=== PATIENT | female | born 1945 | race Caucasian/White ===

== ENCOUNTER 2016-11-18 12:19 | Observation (INO) | payer MEDICARE, OTHER ==
[2016-11-18] MEDS ORDERED: ASPIRIN 81 MG TAB.CHEW PO ONE (13:57)
[2016-11-18 14:08] LABS: Hematocrit 35.8 % (37.0-47.0); Hemoglobin 11.7 gm/dL (12.5-16.0); Mean Cell Volume 84.4 fl (78-100); Mean Corpuscular Hemoglobin 27.6 pg (27-31); Mean Corpuscular Hgb Conc 32.7 g/dl (32-36); Neutrophil # 5.2 K/mm3 (1.3-6.0); Neutrophil % 61.9 % (42-75.0); Red Blood Count 4.24 M/mm3 (4.2-5.4); Red Cell Distribution Width 13.2 % (11.5-14.0); White Blood Count 8.3 K/mm3 (4.0-10.5)
[2016-11-18 14:23] LABS: Prothrombin Time (Patient) 10.4 Seconds (9.4-11.4)
[2016-11-18 14:24] LABS: Partial Thrombolplastin Time 25.5 Seconds (24-32)
[2016-11-18 14:29] LABS: Platelet Count 46 K/mm3 (150-450)
[2016-11-18 14:30] LABS: ALT 25 U/L (19-67); AST 15 U/L (0-48); Albumin * 4.1 gm/dl (3.4-5.0); Alkaline Phosphatase * 82 U/L (50-170); Anion Gap 14.9 mmol/L (6.8-13.8); BUN/Creatinine Ratio 19.2 (9.0-21.6); Bilirubin, Total 0.4 mg/dL (0.0-1.1); Blood Urea Nitrogen 28 mg/dL (3-23); Ca. Corrected For Albumin 8.6 mg/dL (8.4-10.2); Carbon Dioxide 24.9 mmol/L (24-32.6); Chloride 101 mmol/L (97-106); Glucose * 190 mg/dL (70-110); Potassium 3.8 mmol/L (3.4-4.6); Sodium 137 mmol/L (132-142); Total Protein 7.4 gm/dL (6.2-8.2); Troponin I Less than 0.017 ng/ml (0.00-0.10)
--- NOTE | 2016-11-18 15:12 | ERNOTE ---
Chest Pain/Cardiac HPI Date of Service: 11/18/16 Chief Complaint: Palpitations Time Seen by Provider: 11/18/16 13:44 Source: patient Exam Limitations: no limitations Immunizations: IMMUNIZATION HX Immunizations Up to Date Yes History of Influenza Vaccine No Hx Pneumococcal Vaccination No Allergies/Adverse Reactions: Allergies codeine [Codeine] Adverse Reaction (Intermediate, Verified 11/18/16 12:39) rash sulfamethoxazole [From Bactrim] Adverse Reaction (Intermediate, Verified 12:39) rash trimethoprim [From Bactrim] Adverse Reaction (Intermediate, Verified 11/18/16 12 :39) rash Home Medications: HOME MEDICATIONS Metoprolol Tartrate 1 tab PO HS 10/27/12 [Last Taken 11/18/16] Simvastatin 1 tab PO HS 10/27/12 [Last Taken 11/18/16] Sertraline HCl [Zoloft] 50 mg PO DAILY 07/04/14 [Last Taken 11/18/16] ALPRAZolam [Xanax] 0.5 mg PO HS 11/18/16 [Last Taken 11/18/16] Amlodipine Besylate [Norvasc] 2.5 mg PO DAILY 11/18/16 [Last Taken 11/18/16] Levothyroxine Sodium [Synthroid] 75 mcg PO DAILY 11/18/16 [Last Taken 11/18/16] Losartan Potassium [Cozaar] 25 mg PO DAILY 11/18/16 [Last Taken 11/18/16] Narrative: Patient comes due to fast heart rate and dizziness. Patient is getting SOB on walking. Patient with no chest pain reported. Timing: intermittent Severity/Quality: mild, dull, pressure Location: substernal Chest Pain Radiation: no radiation Activities at Onset: activity Modifying Factors - Improves: Present: nothing Modifying Factors - Worsens: Present: other - walking Aspirin Treatment Today: no aspirin today Associated Symptoms: Present: dizziness, palpitations. Absent: headache, syncope, cough, shortness of breath, diaphoresis, fever/chills, heartburn, nausea, vomiting, abdominal pain, weakness, back pain, swelling/lump in chest Prior Chest Pain/Cardiac Workup: Denies: prior chest pain Prior Treatment: Denies: recently seen Review of Systems - Review of Systems Constitutional: Present: no symptoms reported EYE: Present: no symptoms reported ENT: Present: no symptoms reported Respiratory: Present: no symptoms reported Cardiology: Present: palpitations. Absent: syncope, edema, claudication Gastrointestinal/Abdominal: Present: no symptoms reported Genitourinary: Present: no symptoms reported Musculoskeletal: Present: no symptoms reported Skin: Present: no symptoms reported Neurological: Present: no symptoms reported Endocrine: Present: no symptoms reported Hematologic/Lymphatic: Present: no symptoms reported Psych: Present: no symptoms reported - Patient's Past Medical History Patient History - Medical: Anxiety, Hypothyroidism Patient History - Cancer: No Hx of Cancer Patient History - Surgical Procedures: Cholecystectomy, Cardiac stent, Hysterectomy - Social History Living Situations: home Smoking Status: Never smoker Have you smoked in the past 12 months: No Alcohol Use: none Drug Use: none Physical Exam - Physical Exam General Appearance: Present: wd/wn, alert, no apparent distress Eye Exam: Normal inspection: bilateral, PERRL: bilateral, EOMI: bilateral Ears, Nose, Throat: Present: normal ENT inspection, hearing grossly normal Neck: Present: normal inspection, nontender Respiratory: Present: no respiratory distress, normal breath sounds, no accessory muscle use, chest nontender, lungs clear Cardiovascular/Chest: Present: normal peripheral pulses, irregularly irregular, systolic murmur Peripheral Pulses: N=norm/S=strong/W=weak/B=bound/A=absent: Carotid (R): Normal , Carotid (L): Normal, Radial (R): Normal, Radial (L): Normal, Dorsalis-pedis (R ): Normal, Dorsalis-pedis (L): Normal Gastrointestinal/Abdominal: Present: normal bowel sounds, nontender, nondistended, soft, no organomegaly Back Exam: Absent: CVA tenderness (R), CVA tenderness (L) Extremity Exam: Present: normal inspection, non-tender, no edema, normal range of motion Neurological Exam: Present: alert, oriented, normal mood/affect, no motor/ sensory deficits DTR: N=norm/NB=norm/brisk/A=abs/DD=dull/dimin/HC=hyperactive: Bicep (R): Normal , Bicep (L): Normal, Knee (R): Normal, Knee (L): Normal Skin Exam: Present: normal color, warm/dry Lymphatic Exam: Present: no adenopathy ED Progress - Date and Time Seen: Date and Time: 11/18/16 15:08 On arrival patient was noticed with A. Fib with FVR. Patient then was noticed with an irregular rhythm and on monitor A. Fib was noticed. Patient then developed a S. Rhythm. Patient case was presented to Dr. Sawyer and recommendation for Observation was given. - Results and Orders Patient's Lab Results:: I have reviewed the patient's lab results. - Vital Signs Patient's Vital Signs:: I have reviewed the patient's vital signs. Vital Signs: Vital Signs 11/18/16 11/18/16 11/18/16 12:31 13:42 14:03 Temperature 36.3 C L Pulse Rate 92 65 61 Respiratory 18 12 16 Rate Blood Pressure 155/71 149/56 148/54 O2 Sat by Pulse 98 95 94 Oximetry 11/18/16 14:17 Temperature Pulse Rate 62 Respiratory 14 Rate Blood Pressure 141/52 O2 Sat by Pulse 98 Oximetry - EKG EKG: NSR, no ST T wave changes EKG read: Interp. by me EKG Comments: Patient on EKG was found with S. Rhythm - X-Ray X-Ray #1 X-Ray: chest X-ray Comments: No acute process was reported by Radiologist on report - Progress/Reassessment Chief Complaint: Palpitations Progress:: Improved - Transfer of Care Expected Disposition: Admit Plan - Plan Plan: Due to no previous Hx of A. Fib and finding patient will be place in hospital for observation. Departure - Departure Clinical Impression: Palpitation Chest pain Qualifiers: Chest pain type: unspecified Qualified Code(s): R07.9 - Chest pain, unspecified Disposition: [facility] Condition: Good Referrals: Jessica Sawyer MD [Primary Care Provider] -
[2016-11-18] MEDS ORDERED: ASPIRIN 325 MG TABLET.DR ONE (15:23)
[2016-11-18] MEDS ORDERED: ASPIRIN 81 MG TAB.CHEW ONE (15:27)
[2016-11-18] MEDS ORDERED: NORMAL SALINE 1,000 ML IV STA (18:00)
[2016-11-18] MEDS ORDERED: POTASSIUM CHLORIDE 20 MEQ TABLET.SA PO ONE (18:01)
--- NOTE | 2016-11-18 18:34 | HP ---
Chief Complaint - Chief Complaint Date of Service: 11/18/16 Time of Service: 18:30 Chief Complaint: "feels funny in chest" for the last 10 days and intermittent dizziness for the. last 2 days. History of Present Illness: Patient is a 71 yr old WF with a H/O HTN, HLD, IFG, HODA on CPAP and hypothyroidism who came to the ER for evaluation of being more aware of her heartbeat for the last 7-10 days and intermittent dizziness for the last 2-3 days [employer]RI[employer] TRA[employer], with worsening of her symptoms today which prompted her to come to the ER. She had new onset A. fib with RVR with a rate of 136/min and converted to NSR on her own. She was admitted into observation for further care and treatment on 11/18/2016. - Patient's Past Medical History Additional info: PAST MEDICAL HISTORY: Hypertension 1984; hyperlipidemia 2005; hypothyroidism 2013; IFG 2014; obesity with BMI 39 2015; osteopenia; sleep apnea with CPAP 2014. Heart catheterizations 2 negative[dates unknown]. Patient History - Cancer: No Hx of Cancer Additional Info: PAST SURGICAL HISTORY: Hysterectomy 1971; cardiac catheterizations 2 [mild CAD] [dates unknown]; cholecystectomy 2004. - Family History Mother Family History - Medical: - 72 colon cancer, HTN Father Family History - Medical: Other - depression Children Family History - Medical: - son- at 36-MD. - Social History Living Situations: home - with spouse Smoking Status: Former smoker - 1 PPD 42 years ; quit in 2011. Have you smoked in the past 12 months: No Smoking Stop Date: 11/02/10 Alcohol Use: none Drug Use: none Review Of Systems (GEN) - Review of Systems Generalized/Overall Review: Present: Fatigue. Absent: Diaphoresis Respiratory: Present: Shortness of Breath Cardiac: Absent: Chest Pain, Edema Abdominal: Absent: Nausea, Vomiting Neurological: Present: Anxiety Allergies/Adverse Reactions: Allergies Allergy/AdvReac Type Severity Reaction Status Date / Time codeine [Codeine] AdvReac Intermediate rash Verified 11/18/16 12:39 sulfamethoxazole AdvReac Intermediate rash Verified 11/18/16 12:39 [From Bactrim] trimethoprim [From Bactrim] AdvReac Intermediate rash Verified 11/18/16 12:39 Home Medications: HOME MEDICATIONS Metoprolol Tartrate 150 mg PO HS 10/27/12 [Last Taken 10/26/12 20:00] Sertraline HCl [Zoloft] 50 mg PO DAILY 07/04/14 [Last Taken 11/18/16] ALPRAZolam [Xanax] 0.5 mg PO HS 11/18/16 [Last Taken 11/18/16] Amlodipine Besylate [Norvasc] 5 mg PO BID 11/18/16 [Last Taken 11/18/16] Levothyroxine Sodium [Synthroid] 75 mcg PO DAILY 11/18/16 [Last Taken 11/18/16] Losartan Potassium [Cozaar] 100 mg PO DAILY 11/18/16 [Last Taken 11/18/16] Pravastatin Sodium [Pravachol] 20 mg PO HS 11/18/16 [Last Taken Unknown] Exam - Exam Vital Signs: Vital Signs - Last Taken Temp 36.5 C 11/18/16 15:12 Pulse 57 L 11/18/16 16:17 Resp 18 11/18/16 15:18 BP 138/54 11/18/16 15:18 Pulse Ox 98 11/18/16 15:18 Constitutional: Present: No distress, Elderly, Obese ENT Exam: Present: hearing grossly normal, dry mucous membranes Eye Exam: bilateral eye: PERRL, EOMI Neck: Present: normal inspection, trachea midline Respiratory: Present: lungs clear, normal breath sounds. Absent: no accessory muscle use Cardiovascular/Chest: Present: regular rate, rhythm. Absent: tachycardia Peripheral Pulses: carotid (R): 2+, carotid (L): 2+ Abdomen: Present: Normal bowel sounds, soft, nontender, nondistended, CVA tenderness /Rectal: Present: Exam deferred - : Extremity: Present: normal inspection, no pedal edema Skin Exam: Present: normal color, warm/dry Neurologic: Present: no motor/sensory deficits, alert, oriented x 3 Eye contact: Present: cooperative, good eye contact, normal speech - Anxious, normal affect, normal thought pattern. Diagnostic Studies: Laboratory Tests 11/18/16 14:00 WBC 8.3 Hgb 11.7 L Hct 35.8 L Plt Count 46 L 11/18/16 14:00 Plasma Sodium 138 Potassium 3.8 Chloride 101 Carbon Dioxide 24.9 BUN 28 H Creatinine 1.46 H Est GFR (Non-Af Amer) 37 L Calcium Adj for Albumin 8.6 Total Bilirubin 0.4 AST 15 ALT 25 Alkaline Phosphatase 82 Total Protein 7.4 Albumin 4.1 11/18/16 14:00 PT 10.4 INR (Anticoag Therapy) 1.00 PTT (Carlos) 25.5 Troponin I < 0.017 11/18/16 14:00 Iron 57 TIBC 313 Transferrin % Sat 18 CXR: 11/18/2015: Cardiac silhouette, lungs and osseous structures are normal. Impression: No acute cardiopulmonary processes identified. EK11/18/2015: NSR 60/min. Assessment/Plan - Narrative Narrative: New-onset A. fib converting to NSR: Patient was admitted observation. Check thyroid levels. Patient on metoprolol ER 100 mg at bedtime. Increase accordingly. Her chads 2 score greater than 2 therefore will need anticoagulation. Discussed in detail regarding warfarin and DOAC. Patient would like to check with her insurance. Expected stay is one midnight. Check labs on 11/19/2016. Hypertension: Well controlled. On metoprolol ER, amlodipine and losartan. Medications may have to be adjusted for better rate control. Hyperlipidemia: On pravastatin 20 mg daily. Hypothyroidism: Levothyroxine 75 g daily; check FT4 and TSH in a.m. Anxiety and depression: Continue sertraline 50 mg daily. HODA on CPAP: Obtain settings from her prior sleep studies and titrate accordingly.
[2016-11-18 18:44] LABS: Iron 57 mcg/dL (35-120); Transferrin Sat. (% Sat.) 18 % (15-55)
[2016-11-18] MEDS ORDERED: POTASSIUM CHLORIDE 10 MEQ TABLET.SA ONE (19:05)
[2016-11-18] MEDS ORDERED: SIMVASTATIN 20 MG TABLET ONE (20:58)
[2016-11-18] MEDS ORDERED: METOPROLOL SUCCINATE 50 MG TABLET.SA PO ONE (20:58)
[2016-11-18] MEDS ORDERED: SIMVASTATIN 10 MG TABLET PO SCH (21:00)
[2016-11-18] MEDS ORDERED: ALPRAZolam 0.5 MG TABLET PO SCH (21:00)
[2016-11-18] MEDS: METOPROLOL SUCCINATE 100 MG TABLET.SA PO SCH (21:01)
[2016-11-19 06:17] LABS: Anion Gap 14.1 mmol/L (6.8-13.8); BUN/Creatinine Ratio 17.6 (9.0-21.6); Calcium * 8.8 mg/dL (7.9-10.9); Carbon Dioxide 23.5 mmol/L (24-32.6); Estimated Creat Clear 30.7; Potassium 4.6 mmol/L (3.4-4.6); T4 Free * 0.96 ng/dL (0.76-1.46); TSH * 2.408 uIU/mL (0.358-3.74)
[2016-11-19] MEDS ORDERED: LEVOTHYROXINE SODIUM 75 MCG TABLET PO SCH (07:00)
[2016-11-19] MEDS ORDERED: SERTRALINE HCL 50 MG TABLET PO SCH (09:00)
[2016-11-19] MEDS: METOPROLOL SUCCINATE 100 MG TABLET.SA PO SCH (09:52)
[2016-11-19] MEDS ORDERED: APIXABAN 2.5 MG TABLET PO SCH (10:45)
[2016-11-19] MEDS ORDERED: WARFARIN SODIUM 5 MG TABLET PO ONE (10:56)
--- NOTE | 2016-11-19 11:00 | DS ---
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 She had new onset A. fib with RVR with a rate of 136/min and converted to NSR on her own. During this adm she remain in NSR, medically stable and initiated on Coumadin 5mg daily. 2D-Echo result pending, pt to follow up with Dr Sawyer on Thursday, Have Pt/INR on Thursday. pt can bring her cpap on next visit to have it check. Pt stated she have scheduled dental appt on Thursday. She need to inform dentist she is now on Coumadin before appt. Per pt takes aspirin 325mg daily at home. pt need to stop aspirin while on Coumadin. Plan of care discussed with pt she verbalized understanding and agree. Diagnostic testing : 2D Echo -result pending, follow up with Dr Sawyer for result at next appt. New medication/ Changes to medications: Coumadin 5mg Daily Stop aspirin 325mg daily Procedures Performed: none Results and Findings: Laboratory Tests 11/18/16 11/18/16 11/18/16 11/19/16 14:00 14:00 14:00 05:42 WBC 8.3 Hgb 11.7 L Hct 35.8 L PT 10.4 INR (Anticoag Therapy) 1.00 PTT (Carlos) 25.5 Sodium 137 141 Potassium 3.8 4.6 D BUN 28 H 22 Creatinine 1.46 H 1.25 Est GFR (Non-Af Amer) 37 L 45 L D Discharge Disposition: Home self care Disposition: Home self-care Condition: Stable Discharge Activity: Activity as tolerated Discharge Diet: Low salt Referrals: Jessica Sawyer MD [Primary Care Provider] - Additional Patient Instructions (free text): Follow up with Dr Sawyer on Thursday call for appt time. Take medications as prescribed May return with Cpap to have it check Prescriptions (Any new or edited meds): Warfarin Sodium [Coumadin] 5 mg PO DAILY #30 tablet Complete Home Medications List: Complete Home Medication List: Sertraline HCl [Zoloft] 50 mg PO DAILY 07/04/14 ALPRAZolam [Xanax] 0.5 mg PO HS 11/18/16 Amlodipine Besylate [Norvasc] 5 mg PO BID 11/18/16 Levothyroxine Sodium [Synthroid] 75 mcg PO DAILY 11/18/16 Losartan Potassium [Cozaar] 100 mg PO DAILY 11/18/16 Pravastatin Sodium [Pravachol] 20 mg PO HS 11/18/16 Metoprolol Succinate [Toprol Xl] 100 mg PO HS tablet.sa 11/19/16 Warfarin Sodium [Coumadin] 5 mg PO DAILY #30 tablet 11/19/16 Amb Orders for Discharge: Prothrombin Time Time Frame: 2 Days, Location: Determined By Patient
[2016-11-19] MEDS ORDERED: ALPRAZolam 0.5 MG TABLET PO ONE (11:39)
[2016-11-19 14:40] VITALS: BP 124/51
[2016-11-19] MEDS ORDERED: ASPIRIN 325 MG TABLET.DR PO SCH (15:14)
[2016-11-19] MEDS ORDERED: METOPROLOL SUCCINATE 100 MG TABLET.SA PO SCH (21:00)
--- NOTE | 2016-11-26 08:54 | ECHO ---
This report is available in the EMR
== END 2016-11-19 16:25 | disposition home or self-care (01) ==
LOC: ER 12:19 → MS 15:10
PROVIDERS: ADMIT Internal Medicine; ATTEND Internal Medicine
DX: I48.91 Unspecified atrial fibrillation (principal); I10 Essential (primary) hypertension; E03.9 Hypothyroidism, unspecified; F41.8 Other specified anxiety disorders; G47.33 Obstructive sleep apnea (adult) (pediatric)
CPT/HCPCS: 36415; 71020; 80048; 80053; 83540; 83550; 84439; 84443; 84484; 85025; 85610; 85730; 93005; 93306; 94660; 99284; G0378

== ENCOUNTER 2017-04-19 17:27 | Emergency (ER) | payer MEDICARE, OTHER ==
[2017-04-19 17:39] VITALS: BP 134/89
--- NOTE | 2017-04-19 18:07 | ERNOTE ---
Trauma/Assault HPI - Narrative Date of Service: 04/19/17 - General Stated Complaint: PACEMAKER/BIG BRUISE/LT ARM Time Seen by Provider: 04/19/17 17:48 Source: patient, family, RN notes reviewed, old records Exam Limitations: no limitations - Immun/Allergies/Home Medications Immunizations: IMMUNIZATION HX Immunizations Up to Date Yes History of Influenza Vaccine No Hx Pneumococcal Vaccination No Allergies/Adverse Reactions: Allergies codeine [Codeine] Adverse Reaction (Intermediate, Verified 11/18/16 12:39) rash sulfamethoxazole [From Bactrim] Adverse Reaction (Intermediate, Verified 12:39) rash trimethoprim [From Bactrim] Adverse Reaction (Intermediate, Verified 11/18/16 12 :39) rash Home Medications: HOME MEDICATIONS Sertraline HCl [Zoloft] 50 mg PO DAILY 07/04/14 [Last Taken 11/18/16] ALPRAZolam [Xanax] 0.5 mg PO HS 11/18/16 [Last Taken 11/18/16] Amlodipine Besylate [Norvasc] 5 mg PO BID 11/18/16 [Last Taken 11/18/16] Levothyroxine Sodium [Synthroid] 75 mcg PO DAILY 11/18/16 [Last Taken 11/18/16] Losartan Potassium [Cozaar] 100 mg PO DAILY 11/18/16 [Last Taken 11/18/16] Pravastatin Sodium [Pravachol] 20 mg PO HS 11/18/16 [Last Taken Unknown] Metoprolol Succinate [Toprol Xl] 100 mg PO HS tablet.sa 11/19/16 [Last Taken Unknown] Warfarin Sodium [Coumadin] 5 mg PO DAILY #30 tablet 11/19/16 [Last Taken Unknown ] Flecainide Acetate [Tambocor] 100 mg PO 12/05/16 [Last Taken Unknown] Polyethylene Glycol 3350 [Miralax] 04/19/17 [Last Taken Unknown] - History of Present Illness Date (Duration): 04/17/17 Narrative: Fell 2 days ago outside of a local convenience store, caught her self with her left arm and is concerned about the degree of bruising. She recently go a pacemaker - incision still healing, concerned about this as well. There is an indurated area in the bruising on her left arm that she believes feels warm and is afraid is a clot. Her INR was 2.54 on 04/14 and she has been taking her Coumadin as directed. She denies any other injuries. Location Occurred: Reports: other Pain Location: Reports: upper extremity Method of Injury: Reports: fall Loss of Consciousness: Reports: no loss of consciousness, remembers the event Associated Symptoms - Trauma: Denies: headache, dizziness, lightheadedness, trouble walking, neck pain, chest pain, shortness of breath, abdominal pain, nausea, vomiting Review of Systems - Review of Systems Constitutional: Present: no symptoms reported EYE: Present: no symptoms reported ENT: Present: no symptoms reported Respiratory: Absent: shortness of breath, cough, wheezing Cardiology: Present: edema. Absent: chest pain, palpitations, syncope Gastrointestinal/Abdominal: Absent: nausea, vomiting, abdominal pain Genitourinary: Present: no symptoms reported Musculoskeletal: Present: muscle pain. Absent: joint pain, joint swelling Skin: Present: lumps, change in color. Absent: rash, lesions Neurological: Absent: headache, dizziness/light-headedness, weakness, numbness, tingling Endocrine: Present: no symptoms reported Hematologic/Lymphatic: Present: easy bruising, easy bleeding Psych: Present: no symptoms reported - Patient's Past Medical History Patient History - Medical: Anxiety, Hypothyroidism Patient History - Cardiac/Respiratory: Atrial Fibrillation, Hypertension, Hyperlipidemia, CPAP/BiPAP Home Use, Sleep Apnea Patient History - Cancer: No Hx of Cancer Patient History - Surgical Procedures: Cholecystectomy, Hysterectomy - Family History Mother Family History - Medical: Father Family History - Medical: Other Children Family History - Medical: - Social History Living Situations: home Psych History: Hx of Anxiety, Hx of Depression Smoking Status: Former smoker Alcohol Use: none Drug Use: none - Immunizations Immunizations Up to Date: Yes Hx Pneumococcal Vaccination: No History of Influenza Vaccine: No Physical Exam - Physical Exam General Appearance: Present: wd/wn, alert, no apparent distress, other - Pleasant, appropriately dressed and groomed Neck: Present: normal inspection, nontender, supple, full range of motion Respiratory: Present: no respiratory distress, normal breath sounds, no accessory muscle use, lungs clear Cardiovascular/Chest: Present: regular rate, rhythm, no murmur, normal peripheral pulses Extremity Exam: Present: normal range of motion, pedal edema, extremity edema - mild - left forearm, tender to palpation Neurological Exam: Present: alert, oriented, normal mood/affect, no motor/ sensory deficits Skin Exam: Present: warm/dry, other - large area of ecchymosis to left forearm with a palpable induration within it, incision to left chest intact with steri- strips in place ED Progress - Vital Signs Patient's Vital Signs:: I have reviewed the patient's vital signs. Vital Signs: Vital Signs 04/19/17 17:32 Temperature 37.0 C Pulse Rate 73 Respiratory 14 Rate Blood Pressure 134/89 O2 Sat by Pulse 98 Oximetry - Progress/Reassessment Chief Complaint: Fall Progress:: Unchanged Departure Clinical Impression: Hematoma Fall Qualifiers: Encounter type: initial encounter Qualified Code(s): W19.XXXA - Unspecified fall, initial encounter - Departure Disposition: Home self-care Condition: Good Instructions: Hematoma Additional Instructions: Moist heat and elevation to arm Continue your routine medications Follow up for fever, worsening pain or redness extending out onto the arm Referrals: Jessica Sawyer MD [Primary Care Provider] -
== END 2017-04-19 18:05 | disposition home or self-care (01) ==
LOC: ER 17:27
DX: S50.12XA Contusion of left forearm, initial encounter (principal); Z87.891 Personal history of nicotine dependence; W19.XXXA Unspecified fall, initial encounter; W22.8XXA Striking against or struck by other objects, initial encounter; Y92.512 Supermarket, store or market as the place of occurrence of the external cause